=== PATIENT | male | born 1950 | race Caucasian/White ===

== ENCOUNTER 2025-04-19 12:42 | Outpatient (AMB) | payer MEDICARE, SELFPAY ==
--- NOTE | 2025-04-19 08:33 | A.SPINEOV_ITS ---
Intake Visit Reasons: Bulging lumbar disc Intake Note: Mr. Goncalves is here today c/o low back pain. MRI done @ [facility] (brought disc). 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 He is a pleasant 74 year old male who comes in today for evaluation of mild low back pain and cramping pains in his bilateral posterior buttocks. He reports this has been ongoing for the past 1 month, and denies any known inciting incident other than playing squash. He does report that after this began he attempted to take a vacation to [facility], and was unable to engage in many of the meaningful activities he wished to complete while there due to his pain. He was most recently sent for a course of physical therapy which he does feel is helping relive some of his symptoms. He states that he has experienced this pain before about 14 years ago, and was able to treat it successfully with a series of cortisone injections. In addition to the low back pain and cramping pains in his bilateral buttocks, he states that he has a feeling of numbness over his left anterior tibialis, a tingling sensation on the bottom of his left foot. Presently he is taking naproxen 500 mg b.i.d. to help mitigate his symptoms. He reports fairly good relief of his pain symptoms with this medication. He denies any worsening symptoms with ambulation, and states that his pain is most intense when attempting to rise from a seated position. He is still able to complete meaningful activities such as taking his dogs for a 20 minute walk each day. Generally speaking he is very active, and reports playing squash, pickleball, and hiking regularly. PMH: GERD, Seasonal allergies, vitamin D deficiency, hyperlipidemia. Social hx: Patient does not smoke, reports no substance use. Medications: Naproxen. Allergies: NKDA Physical exam: The patient has full 5/5 strength in his upper and lower extremities. He ambulates well with a non spastic nonantalgic gait. He uses no assistive devices to ambulate. He reports hypoesthesia to light touch over the left anterior tibialis. He denies any other sensational deficits slight touch on examination. His reflexes are 1+ hypoactive in the bilateral patella, slightly worse on the left-hand side. The rest of his reflexes are 2+ intact. (-) bilateral George's, (-) bilateral clonus, (-) bilateral straight leg raise. Imaging review: MRI of the lumbar spine completed at [facility] shows moderate right-sided foraminal stenosis at L2-3, moderate central canal and severe bilateral foraminal stenosis at L3-4, posterior disc bulge at L4-5 and severe central canal and bilateral foraminal stenosis at this level. There is also a grade 1 spondylolisthesis L4-5. Impression: Michael is a pleasant 74-year-old male who comes in today for evaluation of 1 month of mild low back pain and cramping pains in his bilateral posterior buttocks. This is also accompanied by a feeling of numbness in his left anterior tibialis and some tingling on the bottom of his foot. His clinical picture is most consistent with severe spinal stenosis as a result of the longstanding compression at L4-5, alongside the posterior disc bulge at L4-5 and the notable grade 1 spondylolithesis at L4-5. Given that the patient is very functional at this time with minimal pain symptoms and a very strong response to a previous course of cortisone injections in the lumbar spine, I believe that attempting cortisone injections is reasonable in his specific case. Typically with patients who have the kind of compression that we see on his MRI imaging, we offer them a minimally invasive lumbar decompression in day surgery, however the patient prefers to attempt injections first. I will refer him to Dr. Falcon at [facility] in [place]. I encouraged him to have a low threshold to come back and see us for evaluation/surgical discussion if his pain significantly worsens, his numbness/tingling worsens, or he develops profound weakness of his lower extremities. Thank you for allowing us to care for your patient. The total time spent with this visit with this patient was 45 minutes reviewing history, physical exam, MRI imaging review, and implementation of treatment plan or further diagnostic testing Nas Lezama MD,PhD [facility] Coding Level of Care Code New Pt Level 4 (42883) Diagnoses Spinal stenosis, lumbar region with neurogenic claudication M48.062
--- OUTSIDE RECORDS SUMMARY | 2025-04-19 13:14 | XMS_ITS | Encounter Summary ---
Author Organization [facility] Address [address] [place] [address] Phone Care Team Providers Care Camera Repair Technician Name Role Phone Melanie Calderon MD Primary Care Provider Encounter Details Date Type Department Care Team (Late st Contact Info) Description 09/12/[address], [facility] - [address], [address] [place] [id number] Social History Tobacco Use Types Packs/Day Years Used Date Smoking Tobacco: Never Sex and Gender Information Value Date Recorded Sex Assigned at Not on file Legal Sex Male 6:06 PM EST Gender Identity Not on file Sexual Orientation Not on file documented as of this encounter Plan of Treatment Not on file documented as of this encounter Visit Diagnoses Not on filedocumented in this encounter Care Teams Camera Repair Technician Relationship Specialty Start Date End Date Melanie Calderon MD [address] [place] [id number] [email or web address] PCP - General Internal Medicine 06/29/14 documented as of this encounter Additional Source Comments The information contained in this document represents components of the legal health record. It is not the complete legal health record.[facility]
== END 2025-04-19 13:54 | disposition home or self-care (01) ==
PROVIDERS: PCP Nurse Practitioner Family; Referring Provider Nurse Practitioner Family; Visit Provider Physician Assistant
DX: M48.062 Spinal stenosis, lumbar region with neurogenic claudication (principal)
CPT/HCPCS: 99204

== ENCOUNTER → 2025-04-19 12:42 | Outpatient (BNVA) | payer MEDICARE, SELFPAY | PROVIDERS: PCP Nurse Practitioner Family; Referring Provider Nurse Practitioner Family; Visit Provider Physician Assistant | DX: M48.062 Spinal stenosis, lumbar region with neurogenic claudication (principal) | CPT/HCPCS: 99202 ==